=== PATIENT | male | born 1965 | race African-American/Black ===

== ENCOUNTER 2019-11-08 08:41 | Inpatient (IN) | payer BC, OTHER ==
[~2019-11-08] VITALS: Ht 172.7 cm; Wt 70.8 kg
[2019-11-08 08:50] VITALS: BP 158/100
[2019-11-08] MEDS ORDERED: NOHOMEMEDICATIONS (09:14)
[2019-11-08 09:32] LABS: ABSOLUTE NEUTROPHILS 7.5 thou/uL (1.4-8.2); BASOPHILS 0.6 % (0.0-2.0); EOSINOPHILS 0.2 % (0.0-3.0); HEMATOCRIT 48.5 % (42.0-52.0); HEMOGLOBIN 15.7 gm/dL (14.0-18.0); LYMPHOCYTES 20.8 % (24.0-44.0); MCHC 32.4 g/dL (28.0-37.0); MONOCYTES 7.5 % (1.0-8.0); PLATELET COUNT 251 thou/uL (150-400); POLYS 70.9 % (36.0-66.0); RBC 6.56 mil/uL (4.50-6.00); RDW 14.8 % (10.5-14.5); WBC 10.5 thou/uL (4.0-11.0)
[2019-11-08 09:34] LABS: CALCIUM 9.9 mg/dL (8.5-10.1); CREATININE 1.4 mg/dL (0.7-1.3); POTASSIUM 3.7 mmol/L (3.5-5.1)
[2019-11-08 09:45] LABS: ALBUMIN 4.1 g/dL (3.4-5.0); TOTAL BILIRUBIN 0.5 mg/dL (0.2-1.0); TOTAL PROTEIN 8.8 g/dL (6.4-8.2); TROPONIN-I 0.1 ng/mL (<0.06)
[2019-11-08 10:25] VITALS: BP 144/92
[2019-11-08 11:02] LABS: AMP/METHAMP Negative (Negative); BARBITURATES Negative (Negative); BENZODIAZEPINES Negative (Negative); COCAINE POSITIVE (Negative); METHADONE Negative (Negative); OPIATES Negative (Negative); PCP Negative (Negative)
[2019-11-08 13:09] LABS: URINE BILIRUBIN NEGATIVE (Negative); URINE BLOOD NEGATIVE (Negative); URINE CLARITY CLEAR; URINE COLOR YELLOW; URINE GLUCOSE-RANDOM* NEGATIVE (Negative); URINE KETONES 1+ (Negative); URINE LEUKOCYTES-REFLEX NEGATIVE (Negative); URINE NITRITE-REFLEX NEGATIVE (Negative); URINE PROTEIN (DIPSTICK) 1+ (Negative); URINE UROBILINOGEN 0.2 E.U./dl (0.2-1.0)
[2019-11-08 13:27] LABS: BACTERIA-REFLEX None Seen /HPF (None Seen); CASTS None Seen /LPF (None Seen); CRYSTALS None Seen /LPF (None Seen); SQUAMOUS None Seen /LPF (0-3); URINE RBC None Seen /HPF (0-2); URINE WBC-REFLEX 0-5 Rare /HPF (0-5)
--- NOTE | 2019-11-08 14:28 | 2DMMODE ---
[facility] [place] [address] 2 D/M-MODE ECHOCARDIOGRAM Name: PERICO CUTLER Sia Room #: 170-15 ADM IN M.R.#: [id number] Admission: 11/08/19 Attend Phys: Vadim Chisholm MD Discharge: Date of : 63 Report #: [id number] THIS REPORT FOR: cc: FAM - Family physician unknown FAM - Family physician unknown Mihir Lindsay MD ~ APPROVED REPORT Study performed: 11/08/2019 13:15:16 EXAM: Comprehensive 2D, Doppler, and color-flow Echocardiogram Patient Location: Bedside Room #: ER-15 Status: routine BSA: 1.91 HR: 69 bpm BP: 159/99 mmHg Rhythm: NSR Other Information Study Quality: Adequate Indications Dyspnea Palpitations Elevated Troponin Chest Pain 2D Dimensions IVSd: 11.29 (7-11mm) LVOT Diam: 20.00 (18-24mm) LVDd: 37.55 mm PWd: 9.63 (7-11mm) Ascending Ao: 32.97 (22-36mm) LVDs: 28.31 (25-40mm) Aortic Root: 34.36 mm LV Single Plane 4CH: 65.64 % LV Single Plane 2CH: 59.65 % Biplane EF: 67.6 % Volumes Left Atrial Volume (Systole) Single Plane 4CH: 33.70 mL Single Plane 2CH: 46.28 mL LA ESV Index: 22.00 mL/m2 Aortic Valve [facility] [address] [place] [address] 2 D/M-MODE ECHOCARDIOGRAM Name: PERICO CUTLER Sia Room #: 170-15 ADM IN M.R.#: [id number] Admission: 11/08/19 Attend Phys: Vadim Chisholm MD Discharge: Date of : 63 Report #: [id number] AoV Peak Walker.: 1.22 m/s AO Peak Gr.: 5.97 mmHg LVOT Max P.36 mmHg LVOT Max V: 1.04 m/s GUMARO Vmax: 2.70 cm2 Mitral Valve E/A Ratio: 1.2 MV Decel. Time: 233.94 ms MV E Max Walker.: 0.72 m/s MV A Walker.: 0.60 m/s MV PHT: 67.84 ms IVRT: 87.66 ms TDI E/Lateral E': 4.80 E/Medial E': 8.00 Medial E' Walker.: 0.09 m/s Lateral E' Walker.: 0.15 m/s Pulmonary Valve PV Peak Walker.: 0.94 m/s PV Peak Gr.: 3.53 mmHg Pulmonary Vein P Vein S: 0.42 m/s P Vein A: 0.25 m/s P Vein D: 0.43 m/s P Vein A Dur.: 93.4 msec P Vein S/D Ratio: 0.98 Tricuspid Valve RAP Estimate: 7.00 mmHg Left Ventricle The left ventricle is normal size. There is normal left ventricular wall thickness. Left ventricular systolic function is normal. The left ventricular ejection fraction is within the normal range. LVEF is 60-65%. Right Ventricle The right ventricle is normal size. The right ventricular systolic function is normal. Atria The left atrium size is normal. The right atrium size is normal. Aortic Valve The aortic valve is normal in structure. No aortic regurgitation is present. There is no aortic valvular stenosis. [facility] [place] [address] 2 D/M-MODE ECHOCARDIOGRAM Name: PERICO CUTLER Room #: 170-15 ADM IN ..#: [id number] Admission: 11/08/19 Attend Phys: Vadim Chisholm MD Discharge: Date of : 63 Report #: [id number] Mitral Valve The mitral valve is normal in structure. There is no mitral valve regurgitation noted. No evidence of mitral valve stenosis. Tricuspid Valve The tricuspid valve is normal in structure. There is no tricuspid valve regurgitation noted. Pulmonic Valve The pulmonary valve is normal in structure. There is no pulmonic valvular regurgitation. Great Vessels The aortic root is normal in size. The ascending aorta is normal in size. IVC is normal in size and collapses >50% with inspiration. Pericardium There is no pericardial effusion. <Conclusion> The left ventricle is normal size. There is normal left ventricular wall thickness. Left ventricular systolic function is normal. The right ventricle is normal size. The left atrium size is normal. The aortic valve is normal in structure. There is no mitral valve regurgitation noted. There is no tricuspid valve regurgitation noted. <ELECTRONICALLY SIGNED> By: Mihir Lindsay MD 11/08/19 1427 1427 1427 Mihir Lindsay MD /INF
--- NOTE | 2019-11-08 14:42 | NUR ---
DR PAULINO AND DR ABEBE BOTH NOTIFIED ABOUT THE TROP LEVEL OF 3.49
[2019-11-08 15:10] LABS: INR 1.1; PROTIME 11.2 Seconds (9.3-11.4)
--- NOTE | 2019-11-08 16:58 | NUR ---
PT GAVE PERMISSION TO PROVIDE ANY UPDATES TO HIS BROTHER, GRANT [phone]
--- NOTE | 2019-11-08 17:59 | NUR ---
PERFECT BINDER FEEDER OFFBEARER CONTACTED TO ORDER A MEAL TRAY
--- NOTE | 2019-11-08 19:16 | NUR ---
ATTEMPTED TO CALL REPORT-DID NOT GET AN ANSWER
--- NOTE | 2019-11-08 19:30 | NUR ---
ATTEMPTED TO GIVE REPORT-WAS ON HOLD FOR 10 MINUTES
[2019-11-08 19:37] VITALS: BP 145/90
[2019-11-08 20:00] VITALS: BP 152/105
--- NOTE | 2019-11-08 21:49 | NUR ---
PT ARRIVED TO CCU 206 AT 1950, PT AMBULATED WITH STEADY GAIT, ASSESSED, VSS, POC REVIEWED, PT VERBALIZED UNDERSTANDING, ADMISSION CHARTED WHILE IN ROOM WITH PATIENT, AWARE OF CALL LIGHT, DIETARY EXPLAINED, TEACHING DONE ON HEART CATH, PT VERBALIZED UNDERSTANDING AND SIGNED CONSENT. HEPARIN GTT ADJUSTED WITH ELEANOR RN PER PTT PROTOCOL, WILL MONITOR
[2019-11-09] VITALS (15 sets, daily range): BP systolic 136–185; BP diastolic 85–122
--- NOTE | 2019-11-09 03:39 | NUR ---
ASSUMED PT CARE AT 2300. PT IS ALERT AND ORIENTED. PT IS STABLE. PT IS ON HEPARIN DRIP. PT IS CURRENTLY ON HEAPRIN DRIP. PT IS NPO FOR A CATH IN THE AM. CONTINUE TO MONITOR PT. DENIES ANY FURTHER NEEDS AT THIS TIME.
[2019-11-09 04:19] LABS: BASOPHILS 0.6 % (0.0-2.0); EOSINOPHILS 0.3 % (0.0-3.0); HEMATOCRIT 43.5 % (42.0-52.0); LYMPHOCYTES 38.9 % (24.0-44.0); MCH 23.9 pg (26.0-34.0); MCHC 31.5 g/dL (28.0-37.0); MCV 75.7 fL (80.0-100.0); MONOCYTES 8.3 % (1.0-8.0); PLATELET COUNT 230 thou/uL (150-400); POLYS 51.9 % (36.0-66.0); RBC 5.75 mil/uL (4.50-6.00); RDW 14.8 % (10.5-14.5); WBC 9.5 thou/uL (4.0-11.0)
[2019-11-09 04:24] LABS: HEMOGLOBIN 13.7 gm/dL (14.0-18.0)
[2019-11-09 04:41] LABS: ANION GAP 8 mmol/L (7-16); BUN 14 mg/dL (7-18); CALCIUM 9.1 mg/dL (8.5-10.1); CHLORIDE 104 mmol/L (98-107); CHOLESTEROL 168 mg/dL (<200); CO2 24 mmol/L (21-32); CREATININE 0.9 mg/dL (0.7-1.3); GLUCOSE 103 mg/dL (74-106); HDL CHOLESTEROL 45 mg/dL (>40); LDL CHOLESTEROL 107 mg/dL (<100); MAGNESIUM 1.9 mg/dL (1.8-2.4); POTASSIUM 3.7 mmol/L (3.5-5.1); SODIUM 136 mmol/L (136-145); TC:HDL 3.7 Ratio (Not establshd); TRIGLYCERIDE 83 mg/dL (<150); VLDL 17 mg/dL (<40)
[2019-11-09 04:52] LABS: SERUM ASSESSMENT Clear
--- NOTE | 2019-11-09 07:38 | EKG ---
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 CAMACHO : 1965 Requested By: Braulio Guidry Order Number: [id number] MD: Lisandro Miramontes Measurements Intervals [place] Rate: 94 P: 20 VA: 170 QRS: -46 QRSD: 85 T: 13 QT: 358 QTc: 448 Interpretive Statements Sinus rhythm Leftward axis No previous ECG available for comparison Electronically Signed On 11-09-2019 7:38:09 CDT by Lisandro Miramontes [email or web address] <ELECTRONICALLY SIGNED> By: Lisandro Miramontes MD, [facility] 11/09/19 0738 3 3 Lisandro Miramontes MD, [facility] /EPI
--- NOTE | 2019-11-09 07:40 | EKG ---
[facility] [place] [address] ELECTROCARDIOGRAM REPORT Name: PERICO CUTLER Room #: 206- ADM IN M.R.#: [id number] Admission: 11/08/19 Attend Phys: Vadim Chisholm MD Discharge: Date of : 63 Report #: [id number] THIS REPORT FOR: cc: FAM - Family physician unknown FAM - Family physician unknown Lisandro Miramontes MD 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: ALEX CAMACHO : 1965 Requested By: Braulio Guidry Order Number: [id number] MD: Lisandro Miramontes Measurements Intervals [place] Rate: 79 P: 16 UT: 153 QRS: -29 QRSD: 101 T: -6 QT: 404 QTc: 464 Interpretive Statements Sinus rhythm Borderline left axis deviation Compared to ECG 11/08/2019 09:04:52 No significant change was found Electronically Signed On 11-09-2019 7:40:18 CDT by Lisandro Miramontes [email or web address] <ELECTRONICALLY SIGNED> By: Lisandro Miramontes MD, [facility] 11/09/19 0740 1011 1011 Lisandro Miramontes MD, [facility] /EPI
[2019-11-09] MEDS ORDERED: AMLODIPINE BESY10 MG PO (12:23)
--- NOTE | 2019-11-09 14:03 | NUR ---
ASSUMED CARE 0700. ALERT X4, CARDIAC HEART CATH WITHOUT INTERVENTIONS. PATIENT BP ELEVATED ON POST CARDIAC INTERVENTION, PT C/O OF CHEST PAIN RADIATING TO HIS BACK. CLENCHING AND SHAKING WITH DRY HIEVES. ZOFRAN, TYLENOL, AMLODIPINE AND HYDRALIZINE GIVEN.NOTIFIED DR ABEBE OF POST CATH BEHAVIOR NOTING PT IS WITHDRAWING FROM COCAIN. RIGHT GROIN SIGHT PRESSURE APPLIED WITH DRY HEIVES. REIFORCING THE IMPORTANCE TO KEEP THE RIGHT LEG IMMOBILIZED HOWEVER, PT CONTINUES TO BE NON COMPLIANT. SMALL BLOOD SPOT NOTED ON GAUZE, PRESSURE APPLIED,PT STATED LAST COCAIN 11/06/19. APPLIED 2L NASAL CANNULA FOR COMFORT. CONTINUE TO MONITOR
--- NOTE | 2019-11-09 15:04 | CATHLAB ---
[facility] [place] [address] INVASIVE PROCEDURE REPORT Name: PERICO CUTLER Room #: 206-P ADM IN M.R.#: [id number] Admission: 11/08/19 Attend Phys: Vadim Chisholm MD Discharge: Date of : 63 Report #: [id number] THIS REPORT FOR: cc: FAM - Family physician unknown FAM - Family physician unknown Mihir Lindsay MD ~ APPROVED REPORT Study performed: 11/09/2019 10:53:10 Patient Details Patient Status: In-Patient Room #: The patient is a 54 year-old male Event Personnel Mihir Lindsay Machine Candle Molder, Eva Cohen RTR Scrub, Lisa Choudhary RTR Monitor, Darlyn Doshi CVT Monitor, Bridger Del Toro RTR X-Ray Tech, Chapo Cha RN expanding machine operator Performed Art Access - R femoral artery* Left Heart Cath w/or w/o Coronaries [id number] [facility] [place] [address] Initial Mod Sed Same Phys/QHP [id number] Mod Sed Same Phys/QHP Ea [id number] Hemostasis with Manual pressure Indication Non-STEMI , Dyspnea, Chest pain Risk Factors Hypercholesterolemia, Hypertension Procedure Narrative The Right Groin^ was infiltrated with 1% Lidocaine subcutaneous anesthesia. A PINNACLE 4FR Sheath #[id number] sheath was inserted into the RFA^. Coronary angiography was performed using coronary diagnostic catheters. The right coronary system was accessed and visualized with a JR4 catheter. The left coronary system was accessed and visualized with a JL4 catheter. The left ventricle was accessed and visualized with a JL4 catheter. Left ventriculogram was performed in 30 degree projection. Hemostasis was obtained with manual pressure following sheath removal without any complications. The patient tolerated the procedure well and there were no complications associated with the procedure. There was no hematoma. [facility] [address] [place] [address] INVASIVE PROCEDURE REPORT Name: PERICO CUTLRE Sia Room #: 206-P [facility] IN [facility].#: [id number] Admission: 11/08/19 Attend Phys: Vadim Chisholm MD Discharge: Date of : 63 Report #: [id number] Intraoperative Conscious Sedation Sedation start time: 11:15 Case end Time: 11:55 Fentanyl 100 mcg Versed 2 mg Fluoro Time: 2.45 minutes Dose: DAP 2637.80 cGycm2 352 mGy Contrast Type and Amount: Omnipaque 180 ml Coronary Angiography The patient's coronary anatomy is right dominant. Diagnostic Cath Left Main The left main artery is a large-caliber vessel, with no flow-limiting lesions. LAD The LAD is a moderate to large caliber vessel, traverses the anterior wall and wraps around the apex. The proximal segment appears mildly ectatic. Within the midsegment, there is mild disease, 30%. Diagonal 1 This is a small caliber vessel, with no flow-limiting lesions. Diagonal 2 This is a small caliber vessel, with no flow-limiting lesions. Circumflex The left circumflex artery has mild ectatic areas in the midsegment. There are no flow-limiting lesions. OM1 This is a patent vessel, with no flow-limiting lesions. OM2 This is a patent vessel, with no flow-limiting lesions. Right Coronary The RCA is a dominant vessel. There appears to be mildly ectatic areas in the midsegment. R PDA There is a patent vessel, with no flow-limiting lesions. RPLV This is a patent vessel, with no flow-limiting lesions. Ramus This is a moderate-sized caliber vessel, patent with no flow-limiting lesions. Left Ventriculography The left ventricle is normal in size with Borderline contractility. The left ventricular ejection fraction is estimated to be 50-55%. Hemodynamics The aortic pressure is 150/94 mmHg with a mean of 121 mmHg. The left ventricular pressure is 162/10 mmHg with a mean of mmHg. The left ventricular end diastolic pressure is 22 mmHg. [facility] [address] [place] [address] INVASIVE PROCEDURE REPORT Name: PERICO CUTLER Room #: 206-P [facility] IN M.R.#: [id number] Admission: 11/08/19 Attend Phys: Vadim Chisholm MD Discharge: Date of : 63 Report #: [id number] Conclusion 1. 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 2. Ectatic regions as described above. 3. Low normal LV systolic function. 4. Recommend guideline directed medical therapy. Vasospasm may have contributed to his presentation, recommend calcium channel dilia. <ELECTRONICALLY SIGNED> By: Mihir Lindsay MD 11/09/19 1504 1504 1504 Mihir Lindsay MD /INF
--- NOTE | 2019-11-09 15:43 | EKG ---
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: Marsha ASHRAF : 1965 Requested By: Vadim Chisholm Order Number: [id number] MD: Lisandro Miramontes Measurements Intervals [place] Rate: 71 P: 39 TN: 147 QRS: -50 QRSD: 122 T: -41 QT: 392 QTc: 426 Interpretive Statements Sinus rhythm Left axis deviation Nonspecific T abnormalities, inferior leads Compared to ECG 11/08/2019 10:11:45 T-wave abnormality now present Electronically Signed On 11-09-2019 15:43:24 CDT by Lisandro Miramontes [email or web address] <ELECTRONICALLY SIGNED> By: Lisandro Miramontes MD, [facility] 11/09/19 1543 1258 1258 Lisandro Miramontes MD, [facility] /EPI
--- NOTE | 2019-11-09 23:34 | NUR ---
ASSUMED CARE FROM DAY SHIFT, PT RESTING IN BED BP 185/110 PT DENIES CHEST PAIN OR SOA, IV HYDRALINE AND IV ATIVAN GIVEN. AT 2226 BP CHECKED SHOWED 151/[address] BARTON NOTIFIED ORDER RECIEVED TO TRANSFER PT TO ICU, FOR POSSIBLE CARDENE GTT TO BE STARTED. RT GROIN SOFT NO HEMTOMA NOTED 2/2 PULSES NOTED. PT TRANSFERRED VIA BED TO ICU.REPORT GIVEN TO BREONNA GEORGE ACCEPTING NURSE.
--- NOTE | 2019-11-09 23:52 | NUR ---
REPORT RECIEVED FROM [address] [place] [address] RN, PATIENT TRANSFERRED TO ROOM 242 AND PLACED ON MONITOR. EDUCATED ON FALL PRECAUTIONS, DOES NOT WANT SCDS PLACED. NO COMPLAINTS OF CHEST PAIN. RIGHT GROIN CATH SITE SCANT BLOOD AND NEGATIVE FOR HEMATOMA. NO SIGN OF ACUTE DISTRESS NOTED AT THIS TIME. WILL CONTINE TO MONITOR.
[2019-11-10] VITALS (12 sets, daily range): BP systolic 126–153; BP diastolic 75–107
[2019-11-10 05:59] LABS: HEMOGLOBIN 14.8 gm/dL (14.0-18.0); MCH 24.1 pg (26.0-34.0); MCHC 32.2 g/dL (28.0-37.0); RBC 6.13 mil/uL (4.50-6.00); RDW 14.5 % (10.5-14.5); WBC 8.8 thou/uL (4.0-11.0)
--- NOTE | 2019-11-10 05:59 | NUR ---
ASSUMED CARE OF PATIENT AT 0000, PATIENT RECIEVED FROM [address] [place] [address] FOR SYSTOLIC BLOOD PRESSURE GREATER THAN 180. IT WAS ANTICIPATED THAT PATIENT WOULD BE STARTED ON CARDENE ONCE TRANSFERRED. CARDENE WASN'T STARTED DUE TO PATIENT'S BLOOD PRESSURE REMAINED BELOW 160 SYSTOLICALLY. PATIENT COMPLAINS OF HEADACHE RELIEVED WITH PO TYLENOL. ADEQUATE PO FLUID INTAKE. VOIDS PER URINAL. RIGHT GROIN SITE INTACT. NO SIGN OF ACUTE DISTRESS NOTED AT THIS TIME. PLAN DISCUSSED WITH PATIENT, PATIENT VERBALIZED UNDERSTANDING. WILL CONTINUE TO MONITOR.
[2019-11-10 06:32] LABS: CREATININE 1.1 mg/dL (0.7-1.3); POTASSIUM 3.3 mmol/L (3.5-5.1)
--- NOTE | 2019-11-10 09:08 | NUR ---
ASSESSMENTS AND INTERVENTIONS DOCCUMENTED. DR. PAULINO ROUNDING ON PATIENT. DR. PAULINO CLEARING PATIENT FOR DISCHARGE. RN ASKING ABOUT TROPONIN REDRAW, NO NEW ORDERS.
== END 2019-11-10 11:35 | disposition home or self-care (01) | DRG 281 ==
LOC: ER 08:41 → 2N 10:41 → ICU 10:41 → EROBS 10:41 → 2N 19:44 → ICU 11-09 23:50
PROVIDERS: Emergency Medicine; Internal Medicine Cardiovascular Disease; Nurse Practitioner; ADMIT Hospitalist; ATTEND Hospitalist
PROC: B2151ZZ Fluoroscopy of Left Heart using Low Osmolar Contrast (ICD-10-PCS; principal; 2019-11-09)
PROC: 4A023N7 Measurement of Cardiac Sampling and Pressure, Left Heart, Percutaneous Approach (ICD-10-PCS; principal; 2019-11-09)
PROC: B2111ZZ Fluoroscopy of Multiple Coronary Arteries using Low Osmolar Contrast (ICD-10-PCS; principal; 2019-11-09)
DX: I21.4 Non-ST elevation (NSTEMI) myocardial infarction (principal); N17.9 Acute kidney failure, unspecified; K21.9 Gastro-esophageal reflux disease without esophagitis; F14.10 Cocaine abuse, uncomplicated; F12.10 Cannabis abuse, uncomplicated; E78.1 Pure hyperglyceridemia; I16.0 Hypertensive urgency; Z79.899 Other long term (current) drug therapy; Z71.51 Drug abuse counseling and surveillance of drug abuser
CPT/HCPCS: 10078; 10081